=== PATIENT | female | born 1935 | race Caucasian/White ===

== ENCOUNTER → 2017-11-27 | Outpatient (CLI) | payer OTHER, MEDICARE ==
[~2017-11-27] MED LIST: CRESTOR10 MG PO; DILTIAZEM 24HR120 M2 PO; ESTRADIOL 1 MG T1 M1 PO; ESTROPIPATE0.75 MG PO; GABAPENTIN 100100 MG PO; MEDROLDOSEPACK PO; METFORMIN HCL500 MG PO; PRILOSEC40 MG PO; VENLAFAXINE HCL75 MG PO; ZESTORETIC 10-1 EACH PO; ZESTORETIC 20-1 EAC1 PO; ZESTORETIC 20-1 EAC3 PO
== END ==
LOC: CAT 06:14
DX: R91.8 Other nonspecific abnormal finding of lung field (principal); G89.29 Other chronic pain; M54.9 Dorsalgia, unspecified; R10.9 Unspecified abdominal pain

== ENCOUNTER → 2020-01-13 | Outpatient (CLI) | payer OTHER, MEDICARE | LOC: CAT 10:11 | DX: N28.1 Cyst of kidney, acquired (principal); R22.2 Localized swelling, mass and lump, trunk; I25.10 Atherosclerotic heart disease of native coronary artery without angina pectoris; D35.00 Benign neoplasm of unspecified adrenal gland; I70.0 Atherosclerosis of aorta; M25.78 Osteophyte, vertebrae ==